=== PATIENT | female | born 1960 | race Caucasian/White ===

== ENCOUNTER 2022-11-22 11:09 | Outpatient (AMB) | payer MEDICARE, MEDICAID, SELFPAY ==
[2022-11-22 11:19] VITALS: BP 108/70; PULSE 92; O2SAT 98; BMI 45.4
--- NOTE | 2022-11-22 11:19 | MHC.PC.OV ---
Vital Signs 11/22/22 11:19 Height 4 ft 11 in Weight 225 lb BMI 45.4 BP 108/70 Blood Pressure Location Rt brachial Position Sitting Pulse 92 Pulse Source Pulse Oximeter Pulse Oximetry (%) 98 Oxygen Delivery Method Room Air Intake Visit Reasons: 6 month follow up Intake Note: Pt is here today for 6 months follow up visit. Pt states that she is getting blood spots on her arms and she alos has a big bruise on her L upper arm. Allergies No Known Allergies Allergy (Verified 11/22/22 11:22) Medication List - Last Reconciled 11/22/22 by Jena León MD amlodipine-benazepril 5-20 mg 1 cap PO DAILY azelastine 2 sprays intranasal DAILY budesonide-formoterol 160-4.5 mcg/actuation 2 puffs PO BID cetirizine 10 mg PO DAILY furosemide (Lasix) 20 mg PO DAILY levocetirizine 10 mg PO DAILY montelukast 10 mg PO DAILY multivitamin 1 tab PO DAILY omeprazole 40 mg PO QAM sertraline 100 mg PO DAILY walker walker with seat Tobacco use date assessed: 11/22/22 Fall risk assessment: No Falls in past year Last assessed Fall Risk: 11/22/22 Dental Screening Dental Screen Date: 11/22/22 Did you have a dental visit in the last 12 months?: Yes Did you have a dental problem in the last 6 months where you did not have access to dental care?: No Was dental information given to patient?: Patient has dentist HPI 6 month follow up HPI Details Pt presents for HTN and asthma, stable on current medications. Patient follows up with [facility] for advanced osteoarthritis of both knees and has been getting cortisone injections every 3 months. Patient is to lose weight in order to getting knee replacement surgery. [facility] Medical History (Updated 11/22/22 @ 12:48 by Jena León MD) Obesity Venous insufficiency of both lower extremities Carpal tunnel syndrome Tremor Chronic GERD Osteoarthritis Chronic asthma Vitamin D deficiency HTN (hypertension) Surgical History H/O colonoscopy No pertinent past surgical history Family History Father No problems noted. Mother No problems noted. Social History Housing: House Alcohol intake: current Alcohol intake frequency: holidays/special occasions only Patient Tobacco Use Status: Never used Tobacco e-Cigarette/Vaping Use: Never Used Current occupational status: retired and disabled Cognitive needs: No Hearing needs: No Vision needs: No Questionnaire PHQ-9 Over the last 2 weeks, how often have you been bothered by any of the following problems? 1. Little interest or pleasure in doing things: not at all 2. Feeling down, depressed, or hopeless: not at all 3. Trouble falling or staying asleep, or sleeping too much: not at all 4. Feeling tired or having little energy: not at all 5. Poor appetite or overeating: not at all 6. Feeling bad about yourself - or that you are a failure or have let yourself or your family down: not at all 7. Trouble concentrating on things, such as reading the newspaper or watching television: not at all 8. Moving or speaking so slowly that other people could have noticed. Or the opposite - being so fidgety or restless that you have been moving around a lot more than usual: not at all 9. Thoughts that you would be better off or of hurting yourself in some way: not at all Total score: 0 Depression Screening Interpretation: Negative Depression Screening Done: Yes Source: Developed by Drs. Paul Diaz, Loida Manrique, Farooq Espitia and colleagues, with an educational davian from [employer]. Thrive Questionnaire Date Thrive assessed: 11/22/22 I am a: Patient What is your living situation today?: I have a steady place to live Within the past 12 months, did the food you bought not last and you didn't have the money to get more?: Never true Within the past 12 months, did you worry whether your food would run out before you got money to buy more?: Never true Do you have trouble paying for medicines?: No Do you have trouble getting transportation to medical appointments?: No Do you have trouble paying your heating and electricity bill?: No Do you have trouble taking care of your child, family member or friend?: No Do you have trouble with day-to-day activities such as bathing, preparing meals, shopping, managing finances, etc.?: No Are you currently unemployed and looking for a job?: No Are you interested in more education?: No Please select the resources that you would like help with: None Currently or been in a relationship where the following occur: no concerns reported AUDIT C Alcohol Use Questionnaire (AUDIT-C) 1. How often do you have a drink containing alcohol?: Never 3. How often do you have six or more drinks on one occasion?: Never Total Score: 0 CHRISTINE-7 AMB Questionnaire CHRISTINE-7 Date CHRISTINE - 7 assessed: 11/22/22 Feeling nervous, anxious, or on edge: 0 = Not at all Not being able to stop or control worryin = Not at all Worrying too much about different things: 0 = Not at all Trouble relaxin = Not at all Being so restless that it is hard to sit still: 0 = Not at all Becoming easily annoyed or irritable: 0 = Not at all Feeling afraid as if something awful might happen: 0 = Not at all Total CHRISTINE-7 score (0-4 normal; 5-9 mild; 10-14 moderate; 15-21 severe): 0 Source: Developed by Drs. Paul Diaz, Loida Manrique, Farooq Espitia and colleagues, with an educational davian from [employer]. Review of Systems Const All systems reviewed & are unremarkable except as noted in HPI and below Reports no additional complaints Eyes Reports no additional complaints ENT Reports no additional complaints Card Reports no additional complaints Resp Reports no additional complaints GI Reports no additional complaints Reports no additional complaints Musc Reports no additional complaints Physical exam (Primary Care) Vital Signs: Last Vital Signs Pulse 92 11/22/22 11:19 BP 108/70 11/22/22 11:19 Pulse Ox 98 11/22/22 11:19 Oxygen Delivery Method Room Air 11/22/22 11:19 BMI result Body Mass Index 45.4 Tobacco/Smoking Status: Tobacco use Status Tobacco use date assessed 11/22/22 11/22/22 11:20 Patient Tobacco Use Status Never used Tobacco 11/22/22 11:20 e-Cigarette/Vaping Use Never Used 11/22/22 11:19 PHQ-9: PHQ-9 Score PHQ-9: Total score 0 11/22/22 11:48 Depression Screening Interpretation: Negative Thrive Assessment: Date of Thrive Assessment Date Thrive assessed 11/22/22 11/22/22 11:31 Currently or been in a relationship where the following occur: no concerns reported Const General: no acute distress HENMT Head: Yes normal to inspection Face and sinus: Yes normal facial exam Throat: Yes posterior oropharynx normal Neck Neck: Yes no lymphadenopathy and Yes supple Resp Effort & Inspection: normal respiratory effort Auscultation: clear to auscultation bilaterally Cardio Rhythm: regular rhythm Heart sounds: S1 normal heart sound present and S2 normal heart sound present GI Inspection: Yes normal to inspection Palpation (GI): Soft to palpation Percussion: Yes normal to percussion Auscultation: normal bowel sounds Assessment and Plan Assessment & Plan (1) HTN (hypertension): Code(s): I10 - Essential (primary) hypertension Plan: Continue current medications (2) Chronic asthma: Code(s): J45.909 - Unspecified asthma, uncomplicated Plan: Continue Symbicort and montelukast (3) Obesity: Code(s): E66.9 - Obesity, unspecified Plan: Weight loss discussed with the patient (4) Osteoarthritis: Comment: both knees and lumbar spine Code(s): M19.90 - Unspecified osteoarthritis, unspecified site Plan: Follow-up with orthopedic Orders: Orders Complete Blood Count Auto Diff 365 Days E78.5 - Hyperlipidemia, unspecified, I10 - Essential (primary) hypertension TSH reflex Free T4 365 Days E78.5 - Hyperlipidemia, unspecified, I10 - Essential (primary) hypertension Comprehensive [place]. Panel Fast 365 Days E78.5 - Hyperlipidemia, unspecified, I10 - Essential (primary) hypertension Lipid Panel 365 Days E78.5 - Hyperlipidemia, unspecified, I10 - Essential (primary) hypertension Referrals Gastroenterology Referral Z00.00 - Encounter for general adult medical examination without abnormal findings Medications: New levocetirizine 10 mg (2 x 5 mg) PO DAILY 90 tabs 3RF Refilled amlodipine-benazepril 5-20 mg 1 cap PO DAILY 90 caps 3RF budesonide-formoterol 160-4.5 mcg/actuation 2 puffs PO BID 10.2 grams 6RF montelukast 10 mg PO DAILY 90 tabs 3RF omeprazole 40 mg PO QAM 90 caps 3RF sertraline 100 mg PO DAILY 90 tabs 3RF Discontinued furosemide (Lasix) Discontinued Reason: Doctor's Order 20 mg PO DAILY 90 tabs 1RF Coding Level of Care Code Est Pt Level 4 (02025) Diagnoses HTN (hypertension) I10 Chronic asthma J45.909 Obesity E66.9 Osteoarthritis M19.90
== END 2022-11-22 12:06 | disposition home or self-care (01) ==
PROVIDERS: PCP Internal Medicine; Visit Provider Internal Medicine
DX: I10 Essential (primary) hypertension (principal); E66.9 Obesity, unspecified; M19.90 Unspecified osteoarthritis, unspecified site; Z68.42 Body mass index [BMI] 45.0-49.9, adult; J45.909 Unspecified asthma, uncomplicated
CPT/HCPCS: 99214

== ENCOUNTER 2023-05-27 13:35 | Outpatient (AMB) | payer MEDICARE, MEDICAID, SELFPAY ==
[2023-05-27 13:48] VITALS: BP 120/76; PULSE 81; O2SAT 96; BMI 43.6
--- NOTE | 2023-05-27 13:48 | A.OFFPC_ITS ---
Vital Signs 05/27/23 13:48 Height 4 ft 11 in Weight 216 lb BMI 43.6 BP 120/76 Blood Pressure Location Lt brachial Position Sitting Pulse 81 Pulse Source Pulse Oximeter Pulse Oximetry (%) 96 Intake Visit Reasons: Follow up Intake Note: Pt is here today for a follow up visit . Pt states that she has been having lower back pain for 4 days. Allergies No Known Allergies Allergy (Verified 05/27/23 14:02) Medication List - Last Reconciled 05/27/23 by Jena León MD albuterol sulfate 0.63 mg (3 mL) inhalation Q6H amlodipine-benazepril 5-20 mg 1 cap PO DAILY azelastine 2 sprays intranasal DAILY budesonide-formoterol 160-4.5 mcg/actuation 2 puffs PO BID cetirizine 10 mg PO DAILY desloratadine 5 mg PO DAILY levocetirizine 10 mg (2 x 5 mg) PO DAILY lidocaine 5% 2 patches topical DAILY meloxicam 15 mg PO DAILY montelukast 10 mg PO DAILY multivitamin 1 tab PO DAILY omeprazole 40 mg PO QAM omeprazole magnesium (Prilosec OTC) 20 mg PO DAILY sertraline 100 mg PO DAILY tramadol 50 mg PO Q4H PRN walker walker with seat Tobacco use date assessed: 05/27/23 Last assessed Fall Risk: 05/27/23 Dental Screening Dental Screen Date: 05/27/23 Did you have a dental visit in the last 12 months?: Yes Did you have a dental problem in the last 6 months where you did not have access to dental care?: No Was dental information given to patient?: Patient has dentist HPI Follow up HPI Details Pt presents for f/u HTN, stable on meds. Patient follows up with orthopedic surgeon for advanced osteoarthritis of both knees and needs to lose weight to below 200 lb in order to have a total knee arthroplasty. [facility] Medical History Obesity Venous insufficiency of both lower extremities Carpal tunnel syndrome Tremor Chronic GERD Osteoarthritis Chronic asthma Vitamin D deficiency HTN (hypertension) Surgical History H/O colonoscopy No pertinent past surgical history Family History Father No problems noted. Mother No problems noted. Social History Housing: House Alcohol intake: current Alcohol intake frequency: holidays/special occasions only Patient Tobacco Use Status: Never used Tobacco e-Cigarette/Vaping Use: Never Used service: No Current occupational status: retired and disabled Cognitive needs: No Hearing needs: No Vision needs: No Questionnaire PHQ-9 Over the last 2 weeks, how often have you been bothered by any of the following problems? 1. Little interest or pleasure in doing things: not at all 2. Feeling down, depressed, or hopeless: not at all 3. Trouble falling or staying asleep, or sleeping too much: not at all 4. Feeling tired or having little energy: not at all 5. Poor appetite or overeating: not at all 6. Feeling bad about yourself - or that you are a failure or have let yourself or your family down: not at all 7. Trouble concentrating on things, such as reading the newspaper or watching television: not at all 8. Moving or speaking so slowly that other people could have noticed. Or the opposite - being so fidgety or restless that you have been moving around a lot more than usual: not at all 9. Thoughts that you would be better off or of hurting yourself in some way: not at all Total score: 0 Depression Screening Interpretation: Negative Depression Screening Done: Yes Source: Developed by Drs. Paul Diaz, Loida Manrique, Farooq Espitia and colleagues, with an educational davian from [employer]. Thrive Questionnaire Date Thrive assessed: 05/27/23 I am a: Patient What is your living situation today?: I have a steady place to live Within the past 12 months, did the food you bought not last and you didn't have the money to get more?: Never true Within the past 12 months, did you worry whether your food would run out before you got money to buy more?: Never true Do you have trouble paying for medicines?: No Do you have trouble getting transportation to medical appointments?: No Do you have trouble paying your heating and electricity bill?: No Do you have trouble taking care of your child, family member or friend?: No Do you have trouble with day-to-day activities such as bathing, preparing meals, shopping, managing finances, etc.?: No Are you currently unemployed and looking for a job?: No Are you interested in more education?: No Please select the resources that you would like help with: None THRIVE Score: 0 AUDIT C Alcohol Use Questionnaire (AUDIT-C) 1. How often do you have a drink containing alcohol?: Never 3. How often do you have six or more drinks on one occasion?: Never Total Score: 0 CHRISTINE-7 AMB Questionnaire CHRISTINE-7 Date CHRISTINE - 7 assessed: 05/27/23 Feeling nervous, anxious, or on edge: 0 = Not at all Not being able to stop or control worryin = Not at all Worrying too much about different things: 0 = Not at all Trouble relaxin = Not at all Being so restless that it is hard to sit still: 0 = Not at all Becoming easily annoyed or irritable: 0 = Not at all Feeling afraid as if something awful might happen: 0 = Not at all Total CHRISTINE-7 score (0-4 normal; 5-9 mild; 10-14 moderate; 15-21 severe): 0 Source: Developed by Drs. Paul Diaz, Loida Manrique, Farooq Espitia and colleagues, with an educational davian from [employer]. Review of Systems Const All systems reviewed & are unremarkable except as noted in HPI and below Reports no additional complaints Eyes Reports no additional complaints ENT Reports no additional complaints and Reports throat swelling Card Reports no additional complaints and Reports syncope Resp Reports no additional complaints GI Reports no additional complaints Reports no additional complaints Neuro Reports syncope Aller/Immun Reports throat swelling Physical exam (Primary Care) Vital Signs: Last Vital Signs Pulse 81 05/27/23 13:48 BP 120/76 05/27/23 13:48 Pulse Ox 96 05/27/23 13:48 BMI result Body Mass Index 43.6 Tobacco/Smoking Status: Tobacco use Status Tobacco use date assessed 05/27/23 05/27/23 14:06 Patient Tobacco Use Status Never used Tobacco 05/27/23 14:06 e-Cigarette/Vaping Use Never Used 05/27/23 13:49 PHQ-9: PHQ-9 Score PHQ-9: Total score 0 05/27/23 14:06 Depression Screening Interpretation: Negative Thrive Assessment: Date of Thrive Assessment Date Thrive assessed 05/27/23 05/27/23 14:06 Const General: no acute distress HENMT Head: Yes normal to inspection Face and sinus: Yes normal facial exam Mouth: Normal oral and palatal mucosa present Eyes General: appearance normal, both eyes and all related structures Resp Effort & Inspection: normal respiratory effort Auscultation: clear to auscultation bilaterally Cardio Rhythm: regular rhythm Heart sounds: S1 normal heart sound present and S2 normal heart sound present GI Inspection: Yes normal to inspection Palpation (GI): Soft to palpation Percussion: Yes normal to percussion Auscultation: normal bowel sounds Assessment and Plan Assessment & Plan (1) HTN (hypertension): Code(s): I10 - Essential (primary) hypertension Plan: Continue current medication (2) Vitamin D deficiency: Code(s): E55.9 - Vitamin D deficiency, unspecified Plan: Continue vitamin-D. (3) Obesity: Code(s): E66.9 - Obesity, unspecified Plan: Continue weight loss (4) Osteoarthritis: Comment: both knees and lumbar spine Code(s): M19.90 - Unspecified osteoarthritis, unspecified site Plan: Follow-up with orthopedics Medications: New lidocaine 5% leave on most painful area for up to 12 hrs 2 patches topical DAILY 60 ea 5RF Coding Level of Care Code Est Pt Level 4 (57537) Diagnoses HTN (hypertension) I10 Vitamin D deficiency E55.9 Obesity E66.9 Osteoarthritis M19.90
== END 2023-05-27 14:51 | disposition home or self-care (01) ==
PROVIDERS: PCP Internal Medicine; Visit Provider Internal Medicine
DX: I10 Essential (primary) hypertension (principal); E55.9 Vitamin D deficiency, unspecified; Z68.41 Body mass index [BMI] 40.0-44.9, adult; E66.9 Obesity, unspecified; M19.90 Unspecified osteoarthritis, unspecified site
CPT/HCPCS: 99214

== ENCOUNTER 2024-09-13 11:42 | Outpatient (AMB) | payer MEDICARE, MEDICAID, SELFPAY ==
--- NOTE | 2024-09-13 11:51 | A.OFFPC_ITS ---
Vital Signs 09/13/24 11:52 Height 4 ft 11 in Weight 222 lb BMI 44.8 BP 132/80 Blood Pressure Location Lt brachial Position Sitting Respiration 20 Pulse 91 Pulse Source Pulse Oximeter Temp 97.8 F Temp Source Oral Pulse Oximetry (%) 97 Oxygen Delivery Method Room Air Intake Visit Reasons: Annual PE Intake Note: Pt is here today for PE. Allergies No Known Allergies Allergy (Verified 09/13/24 11:58) Medication List - Last Reconciled 09/13/24 by Jena León MD albuterol sulfate 0.63 mg (3 mL) inhalation Q6H amlodipine-benazepril 5-20 mg 1 cap PO DAILY azelastine 2 sprays intranasal DAILY budesonide-formoterol 160-4.5 mcg/actuation 2 puffs PO BID cetirizine 10 mg PO DAILY desloratadine 5 mg PO DAILY levocetirizine 10 mg (2 x 5 mg) PO DAILY lidocaine 5% 2 patches topical DAILY montelukast 10 mg PO DAILY multivitamin 1 tab PO DAILY omeprazole 40 mg PO QAM sertraline 100 mg PO DAILY walker walker with seat Tobacco use date assessed: 09/13/24 Fall risk assessment: No Falls in past year Last assessed Fall Risk: 09/13/24 Dental Screening Dental Screen Date: 09/13/24 Did you have a dental visit in the last 12 months?: Yes Did you have a dental problem in the last 6 months where you did not have access to dental care?: No Was dental information given to patient?: Patient has dentist HPI Annual PE HPI Details Pt presents for PE. She complains of chronic bilateral knee pain due to advanced osteoarthritis. Patient has been trying to lose weight,decreasing caloric intake and increasing physical activity for the last 6 months unsuccessfully. She is interested in trying GLP 1 agonist and will check the coverage with her insurance. [facility] Medical History (Updated 09/13/24 @ 13:17 by Jena León MD) Obesity Venous insufficiency of both lower extremities Carpal tunnel syndrome Tremor Chronic GERD Osteoarthritis Chronic asthma Vitamin D deficiency HTN (hypertension) Surgical History (Updated 09/13/24 @ 12:35 by Jena León MD) H/O colonoscopy No pertinent past surgical history Family History Father No problems noted. Mother No problems noted. Social History Housing: House Alcohol intake: current Alcohol intake frequency: holidays/special occasions only Patient Tobacco Use Status: Never used Tobacco e-Cigarette/Vaping Use: Never Used service: No Current occupational status: retired and disabled Cognitive needs: No Hearing needs: No Vision needs: No Questionnaire PHQ-9 Over the last 2 weeks, how often have you been bothered by any of the following problems? 1. Little interest or pleasure in doing things: not at all 2. Feeling down, depressed, or hopeless: not at all 3. Trouble falling or staying asleep, or sleeping too much: not at all 4. Feeling tired or having little energy: not at all 5. Poor appetite or overeating: not at all 6. Feeling bad about yourself - or that you are a failure or have let yourself or your family down: not at all 7. Trouble concentrating on things, such as reading the newspaper or watching television: not at all 8. Moving or speaking so slowly that other people could have noticed. Or the opposite - being so fidgety or restless that you have been moving around a lot more than usual: not at all 9. Thoughts that you would be better off or of hurting yourself in some way: not at all Total score: 0 Depression Screening Interpretation: Negative Depression Screening Done: Yes 30633 - PHQ-9 Billing: Yes Source: Developed by Drs. Paul Diaz, Loida Manrique, Farooq Espitia and colleagues, with an educational davian from [employer]. Thrive Questionnaire Date Thrive assessed: 09/13/24 I am a: Patient What is your living situation today?: I have a steady place to live Within the past 12 months, did the food you bought not last and you didn't have the money to get more?: I choose not to answer this question Within the past 12 months, did you worry whether your food would run out before you got money to buy more?: I choose not to answer this question Do you have trouble paying for medicines?: I choose not to answer this question Do you have trouble getting transportation to medical appointments?: I choose not to answer this question Do you have trouble paying your heating and electricity bill?: I choose not to answer this question Do you have trouble taking care of your child, family member or friend?: I choose not to answer this question Do you have trouble with day-to-day activities such as bathing, preparing meals, shopping, managing finances, etc.?: I choose not to answer this question Are you currently unemployed and looking for a job?: I choose not to answer this question Are you interested in more education?: I choose not to answer this question Please select the resources that you would like help with: None Currently or been in a relationship where the following occur: I choose not to answer THRIVE Score: 0 AUDIT C Alcohol Use Questionnaire (AUDIT-C) 1. How often do you have a drink containing alcohol?: Never 3. How often do you have six or more drinks on one occasion?: Never Total Score: 0 CHRISTINE-7 AMB Questionnaire CHRISTINE-7 Date CHRISTINE - 7 assessed: 09/13/24 Feeling nervous, anxious, or on edge: 0 = Not at all Not being able to stop or control worryin = Not at all Worrying too much about different things: 0 = Not at all Trouble relaxin = Not at all Being so restless that it is hard to sit still: 0 = Not at all Becoming easily annoyed or irritable: 0 = Not at all Feeling afraid as if something awful might happen: 0 = Not at all Total CHRISTINE-7 score (0-4 normal; 5-9 mild; 10-14 moderate; 15-21 severe): 0 Source: Developed by Drs. Paul Diaz, Loida Manrique, Farooq Espitia and colleagues, with an educational davian from [employer]. CHRISTINE-7 Assessment Billing CHRISTINE-7 Assessment Tool: CHRISTINE-7 Assessment 40346 Review of Systems Const All systems reviewed & are unremarkable except as noted in HPI and below Reports no additional complaints Eyes Reports no additional complaints ENT Reports no additional complaints Card Reports no additional complaints Resp Reports no additional complaints GI Reports no additional complaints Reports no additional complaints Physical exam (Primary Care) Vital Signs: Last Vital Signs Temp 97.8 F 09/13/24 11:52 Pulse 91 09/13/24 11:52 Resp 20 09/13/24 11:52 BP 132/80 09/13/24 11:52 Pulse Ox 97 09/13/24 11:52 Oxygen Delivery Method Room Air 09/13/24 11:52 BMI result Body Mass Index 44.8 Tobacco/Smoking Status: Tobacco use Status Tobacco use date assessed 09/13/24 09/13/24 12:02 Patient Tobacco Use Status Never used Tobacco 09/13/24 12:02 e-Cigarette/Vaping Use Never Used 09/13/24 11:53 PHQ-9: PHQ-9 Score PHQ-9: Total score 0 09/13/24 12:29 Depression Screening Interpretation: Negative Thrive Assessment: Date of Thrive Assessment Date Thrive assessed 09/13/24 09/13/24 12:02 Currently or been in a relationship where the following occur: I choose not to answer Const General: no acute distress HENMT Head: Yes normal to inspection Ears: hearing grossly normal bilaterally Face and sinus: Yes normal facial exam Mouth: Normal oral and palatal mucosa present Throat: Yes posterior oropharynx normal Neck Neck: Yes no lymphadenopathy and Yes supple Resp Effort & Inspection: normal respiratory effort Auscultation: clear to auscultation bilaterally Cardio Rhythm: regular rhythm Heart sounds: S1 normal heart sound present and S2 normal heart sound present GI Inspection: Yes normal to inspection Palpation (GI): Soft to palpation Percussion: Yes normal to percussion Auscultation: normal bowel sounds Immunizations pneumoc 20-sarah conj-dip cr(PF) 0.5 mL IM syringe Performing Provider: Jena León MD Performing Location: [facility] Administered by: KRIS Bell on 09/13/24 12:54 Dose Route Admin Location Dispensed Lot Number Expiration Date [facility] Inspector Air Carrier 0.5 mL IM Left Deltoid 0.5 mL [id number] 09/09/25 5614-7879-99 [id number] Total Dispensed Waste 0.5 mL 0 % VIS Given Date VIS Provided VIS Publication Date 09/13/24 Single Vaccine 24 Eligibility Eligibility Date Funding Source Not [facility] Eligible 09/13/24 Private Coding Level of Care Code Est Pt Prev Care >65y(87145) Diagnoses Postmenopausal Z78.0 HTN (hypertension) I10 Obesity E66.9 Chronic GERD K21.9 Osteoarthritis M19.90 Chronic asthma J45.909 Annual physical exam Z00.00 Additional Codes CHRISTINE-7 Assessment Billing - CHRISTINE-7 Assessment Tool: CHRISTINE-7 Assessment 47893 ([id number]) PHQ-9 - 91974 - PHQ-9 Billing: Yes ([id number]) Assessment & Plan Assessment & Plan (1) Postmenopausal: Code(s): Z78.0 - Asymptomatic menopausal state Category: Medical Plan: Check DEXA (2) HTN (hypertension): Code(s): I10 - Essential (primary) hypertension Category: Medical Plan: Continue current medications (3) Obesity: Comment: BMI 44.8 Code(s): E66.9 - Obesity, unspecified Category: Medical Plan: Decreasing caloric intake increasing physical activity discussed with the patient. She will check with her insurance coverage for GLP 1 agonist (4) Chronic GERD: Comment: EGD negative 02/2018 Code(s): K21.9 - Gastro-esophageal reflux disease without esophagitis Category: Medical Plan: Continue PPI and life style modifications (5) Osteoarthritis: Comment: both knees and lumbar spine . Established with [facility] Code(s): M19.90 - Unspecified osteoarthritis, unspecified site Category: Medical Plan: Follow-up with ortho (6) Chronic asthma: Code(s): J45.909 - Unspecified asthma, uncomplicated Category: Medical Plan: Continue Symbicort (7) Annual physical exam: Code(s): Z00.00 - Encounter for general adult medical examination without abnormal findings Category: Medical Plan: Well-balanced diet regular physical activity discussed with the patient , return in 1 year Orders: Orders Complete Blood Count Auto Diff 1 Year I10 - Essential (primary) hypertension, Z00.00 - Encounter for general adult medical examination without abnormal findings Lipid Panel 1 Year I10 - Essential (primary) hypertension, Z00.00 - Encounter for general adult medical examination without abnormal findings Pneumococcal 20 Immunization Today Z23 - Encounter for immunization Comprehensive [place]. Panel Fast 1 Year I10 - Essential (primary) hypertension, Z00.00 - Encounter for general adult medical examination without abnormal findings TSH reflex Free T4 1 Year I10 - Essential (primary) hypertension, Z00.00 - Encounter for general adult medical examination without abnormal findings Vitamin D 25-OH Total 1 Year I10 - Essential (primary) hypertension, Z00.00 - Encounter for general adult medical examination without abnormal findings XR DEXA axial skeleton Today I10 - Essential (primary) hypertension, Z00.00 - Encounter for general adult medical examination without abnormal findings, Z78.0 - Asymptomatic menopausal state Medications: New nystatin 1 appl topical BID 60 grams 2RF Refilled amlodipine-benazepril 5-20 mg 1 cap PO DAILY 90 caps 3RF sertraline 100 mg PO DAILY 90 tabs 3RF omeprazole 40 mg PO QAM 90 caps 3RF lidocaine 5% leave on most painful area for up to 12 hrs 2 patches topical DAILY 60 ea 5RF
[2024-09-13 11:52] VITALS: BP 132/80; PULSE 91; RESP 20; TEMP 36.6; O2SAT 97; BMI 44.8
== END 2024-09-13 12:58 | disposition home or self-care (01) ==
LOC: HO.HMCC 11:43
PROVIDERS: PCP Internal Medicine; Visit Provider Internal Medicine
DX: Z00.00 Encounter for general adult medical examination without abnormal findings (principal); I10 Essential (primary) hypertension; E66.9 Obesity, unspecified; Z68.41 Body mass index [BMI] 40.0-44.9, adult; K21.9 Gastro-esophageal reflux disease without esophagitis; M19.90 Unspecified osteoarthritis, unspecified site; J45.909 Unspecified asthma, uncomplicated; Z78.0 Asymptomatic menopausal state; Z23 Encounter for immunization

== ENCOUNTER → 2024-09-13 11:42 | Outpatient (BNVA) | payer MEDICARE, MEDICAID, SELFPAY | PROVIDERS: PCP Internal Medicine; Visit Provider Internal Medicine | DX: Z00.00 Encounter for general adult medical examination without abnormal findings (principal); Z23 Encounter for immunization; K21.9 Gastro-esophageal reflux disease without esophagitis; M19.90 Unspecified osteoarthritis, unspecified site; J45.909 Unspecified asthma, uncomplicated; E66.9 Obesity, unspecified; Z68.41 Body mass index [BMI] 40.0-44.9, adult; Z78.0 Asymptomatic menopausal state; Z71.3 Dietary counseling and surveillance | CPT/HCPCS: 90471; 90677; 96127; 99397 ==